=== PATIENT | male | born 1965 | race Caucasian/White ===

== ENCOUNTER → 2025-04-19 16:05 | Outpatient (REF) | payer OTHER, SELFPAY | LOC: MRI 3T 16:05 | PROVIDERS: ATTENDING PHYSICIAN Specialist; FAMILY PHYSICIAN Family Medicine; REFERRING PHYSICIAN Radiology Diagnostic Radiology | DX: C61 Malignant neoplasm of prostate (principal); Z13.89 Encounter for screening for other disorder | CPT/HCPCS: 70030; 72197; A9575 ==

== ENCOUNTER → 2025-05-21 09:17 | Outpatient (REF) | payer OTHER, SELFPAY | LOC: PET 09:17 | PROVIDERS: ATTENDING PHYSICIAN Surgery | DX: C61 Malignant neoplasm of prostate (principal) | CPT/HCPCS: 78815; A9595 ==